=== PATIENT | female | born 1985 | race Caucasian/White ===

== ENCOUNTER 2017-09-05 19:16 | Emergency (ER) | payer MEDICAID ==
[~2017-09-05] VITALS: Ht 162.6 cm; Wt 90.7 kg
[2017-09-05 19:16] VITALS: BP_SYST 121
[~2017-09-05 19:16] MED LIST: ACET-2165 PO; ALBMDI INH; ARIP20TA5; BACI120O TP; BACO TP; BENZ2TAB7; CARB200T8; DEXT1CAP3 PO; DOCU-144 PO; DOCU-19; FOLI-43 PO; GEO40 PO; GUAI-776 PO; GUAI100L32; HYDR25TA4; HYDR25TA4 PO; KONSYL PO; KONSYL0.52 GM PO; LACT10SO6 PO; LEVO100T9; LEVO100T9 PO; LIP20; LOPE2CAP PO; LORA1TAB PO; MOME13HF2 INH; MONT10TA22 PO; NORG1TAB11 PO; NORG1TAB39 PO; PANT40TA4 PO; PHEL5 PO; PHEN16.225 PO; PRO40 PO; RISP2TAB PO; SENN-83 PO; SERT-131 PO; SIMV20TA2 PO; SIMV20TA6 PO; TEMA15CA51; TEMA15CA51 PO; TEMA30CA PO; TERB12CR3 TP; TOPI50TA PO; TRIA115C TP; TYC3 PO; ZIPR60CA5 PO; ZIPR80CA26; ZIPR80CA26 PO; [UNRECOGNIZED DRUG - CODE] PO
[2017-09-05] MEDS ORDERED: ALBUTEROL SULFATE 0.083% 2.5 MG/3 ML VIAL.NEB INH ONE (19:45)
[2017-09-05] MEDS ORDERED: PREDNISONE 20 MG TABLET PO ONE (20:15)
[2017-09-05] MEDS ORDERED: IPRATROPIUM/ALBUTEROL SULFATE 3 ML AMPUL.NEB INH ONE (20:15)
[2017-09-05 20:50] VITALS: BP_SYST 124
== END 2017-09-05 20:50 | disposition home or self-care (01) ==
LOC: SED 19:16
DX: J45.901 Unspecified asthma with (acute) exacerbation (principal); J06.9 Acute upper respiratory infection, unspecified; K21.9 Gastro-esophageal reflux disease without esophagitis; I10 Essential (primary) hypertension; F20.9 Schizophrenia, unspecified; Z79.899 Other long term (current) drug therapy
CPT/HCPCS: 36415; 71045; 86403; 87081; 94640; 99285; J7512

== ENCOUNTER 2023-05-25 13:42 | Emergency (ER) | payer MEDICAID ==
[~2023-05-25] VITALS: Ht 160 cm; Wt 90.7 kg
[~2023-05-25 13:42] MED LIST changes: -ACET-2165 PO; +ACET325T PO; +ARIP20TA4; -ARIP20TA5; +BACI15OI13 TP; -BACO TP; +MOME13HF12 INH; -MOME13HF2 INH; +MONT-47 PO; -MONT10TA22 PO; -PANT40TA4 PO; +PANT40TA45 PO; -PHEN16.225 PO; +PHEN16.233 PO; -RISP2TAB PO; +RISP2TAB86 PO; +SIMV-343 PO; +SIMV-43 PO; -SIMV20TA2 PO; -SIMV20TA6 PO; +TEMA15CA5; +TEMA15CA5 PO; -TEMA15CA51; -TEMA15CA51 PO; +ZIPR60CA2 PO; -ZIPR60CA5 PO; +ZIPR80CA23; +ZIPR80CA23 PO; -ZIPR80CA26; -ZIPR80CA26 PO
[2023-05-25 13:50] VITALS: BP_SYST 112; PULSE 102; RESP 19; TEMP 98; O2SAT 98
[2023-05-25 14:44] LABS: COVID19 ANTIGEN SOFIA FIA NEGATIVE (NEGATIVE)
[2023-05-25 14:45] LABS: INFLUENZA TYPE B NEGATIVE (NEGATIVE)
[2023-05-25 14:48] LABS: INFLUENZA TYPE A POSITIVE (NEGATIVE)
[2023-05-25] MEDS ORDERED: OSELTAMIVIR PHOSPHATE 75 MG CAPSULE PO ONE (15:00)
[2023-05-25] MEDS ORDERED: GUAI5SYR PO (15:00)
[2023-05-25] MEDS ORDERED: IBUP-1969 PO (15:00)
[2023-05-25] MEDS ORDERED: guaiFENesin/DEXTROMETHORPHAN 10 ML UDC PO ONE (15:00)
[2023-05-25] MEDS ORDERED: OSEL75CA PO (15:00)
[2023-05-25 15:20] VITALS: BP_SYST 115; PULSE 84; RESP 18; TEMP 98; O2SAT 98
== END 2023-05-25 15:19 | disposition home or self-care (01) ==
LOC: SED 13:42
DX: J10.1 Influenza due to other identified influenza virus with other respiratory manifestations (principal); B34.9 Viral infection, unspecified; R05.9 Cough, unspecified; R09.81 Nasal congestion; M79.10 Myalgia, unspecified site; J45.909 Unspecified asthma, uncomplicated; K21.9 Gastro-esophageal reflux disease without esophagitis; I10 Essential (primary) hypertension; Z79.899 Other long term (current) drug therapy; Z20.822 Contact with and (suspected) exposure to COVID-19
CPT/HCPCS: 36415; 99283; 87804 ×2; 87426; G9035